=== PATIENT | female | born 1985 | race Caucasian/White ===

== ENCOUNTER 2021-06-21 03:45 | Inpatient (IN) | payer OTHER ==
[2021-06-21] MEDS: ELECTROLYTE-148 SOLN 1,000 ML IV SCH ×2 (05:15→09:50)
[2021-06-21] MEDS ORDERED: PENICILLIN G POTASSIUM 5,000,000 UNIT in DEXTROSE 5%-WATER - 250 ML IVPB ONE (06:00)
[2021-06-21] MEDS ORDERED: PROMETHAZINE HCL 25 MG/1 ML VIAL IVPUSH ONE (06:06)
[2021-06-21] MEDS ORDERED: BUTORPHANOL TARTRATE 1 MG/ML VIAL IVPB ONE (06:06)
[2021-06-21 06:15] VITALS: BMI 34.5
[2021-06-21 06:33] LABS: BASO % 0.3 % (0-2.0); EOS % 0.4 % (0-4.5); HEMATOCRIT 35.3 % (32.4-45.2); HEMOGLOBIN 11.8 GM/dL (10.7-15.3); LYMPH % 14.4 % (8-40); MCH 31.1 pg (25.7-33.7); MCHC 33.5 g/dl (32.0-36.0); MEAN CELL VOLUME 92.9 fl (80-96); MEAN PLT VOLUME 9.5 fl (7.5-11.1); MONO % 5.3 % (3.8-10.2); NEUT % 79.6 % (42.8-82.8); PLATELET COUNT 205 10^3/uL (134-434); RDW 14.1 % (11.6-15.6)
[2021-06-21 06:54] LABS: BLOOD UREA NITROGEN 10.2 mg/dL (7-18); CALCIUM 8.6 mg/dL (8.5-10.1)
[2021-06-21 06:58] LABS: CREATININE 0.5 mg/dL (0.55-1.3)
[2021-06-21 07:04] LABS: INR 0.97 (0.83-1.09); PROTHROMBIN TIME (PATIENT) 11.2 SEC (9.7-13.0)
[2021-06-21 07:07] LABS: ACTIVATED PTT 27.9 SECONDS (25.2-36.5)
[2021-06-21] MEDS ORDERED: OXYTOCIN 30 UNITS in 0.9% NS 30 UNIT/500 ML INFUS.BAG IVPB SCH (07:45)
[2021-06-21] MEDS ORDERED: OXYTOCIN 30 UNITS in 0.9% NS 30 UNIT/500 ML INFUS.BAG IVPB ONE (07:47)
[2021-06-21 07:51] LABS: HIV INTERPRETATION NEGATIVE (NEGATIVE)
[2021-06-21] MEDS ORDERED: FENTANYL/BUPIVACAINE/NS/PF - PCEA - 50 ML DISP.SYRIN EP ONE ×3 (08:05→17:39)
[2021-06-21] MEDS ORDERED: NALOXONE HCL 0.4 MG/ML VIAL IVPUSH PRN (08:09)
[2021-06-21] MEDS ORDERED: BUPIVACAINE HCL/PF 0.25% (2.5MG/ML) 10 ML VIAL ONE (08:11)
[2021-06-21] MEDS: FENTANYL/BUPIVACAINE/NS/PF - PCEA - 50 ML DISP.SYRIN EP SCH ×3 (08:20→17:43)
[2021-06-21] MEDS: PENICILLIN G POTASSIUM 2,500,000 UNIT in DEXTROSE 5%-WATER - 100 ML IVPB SCH ×4 (10:00→23:13)
[2021-06-21] MEDS ORDERED: ACETAMINOPHEN 325 MG TABLET (FP) PO PRN ×2 (20:41→20:55)
[2021-06-21] MEDS ORDERED: oxyCODONE HCL 5 MG TABLET PO PRN (20:41)
[2021-06-21] MEDS ORDERED: IBUPROFEN 800 MG/8 ML IJ IVPB PRN (20:41)
[2021-06-21] MEDS ORDERED: ACETAMINOPHEN 1000 MG/100 ML BAG IVPB PRN (20:41)
[2021-06-21] MEDS ORDERED: SENNOSIDES/DOCUSATE COMBO (SENNA PLUS) TABLET (UD) PO PRN (20:41)
[2021-06-21] MEDS ORDERED: ONDANSETRON 4 MG/2 ML VIAL IVPB PRN (20:41)
[2021-06-21] MEDS ORDERED: ONDANSETRON 4 MG/2 ML VIAL IVPUSH PRN (20:55)
[2021-06-21] MEDS ORDERED: IBUPROFEN 600 MG TABLET (FP) PO PRN (20:55)
[2021-06-21] MEDS ORDERED: morphine SULFATE/PF 1 MG/2 ML (2cc Syringe - QUVA) EP ONE (20:55)
[2021-06-21] MEDS ORDERED: OXYTOCIN 20 UNITS in 0.9% NS 20 UNIT/1,000 ML INFUS.BAG IV ONE (21:52)
[2021-06-21] MEDS: OXYTOCIN 20 UNITS in 0.9% NS 20 UNIT/1,000 ML INFUS.BAG IV SCH (22:20)
[2021-06-22] MEDS: CEFAZOLIN 2 GM in DEXTROSE 5%-WATER - 100 ML IVPB SCH ×2 (02:24→11:37)
[2021-06-22] MEDS: OXYTOCIN 20 UNITS in 0.9% NS 20 UNIT/1,000 ML INFUS.BAG IV SCH (06:01)
[2021-06-22 09:15] LABS: BASO % 0.1 % (0-2.0); HEMATOCRIT 27.3 % (32.4-45.2); LYMPH % 13.4 % (8-40); MCH 31.2 pg (25.7-33.7); MCHC 33.1 g/dl (32.0-36.0); MEAN CELL VOLUME 94.2 fl (80-96); MEAN PLT VOLUME 9.3 fl (7.5-11.1); MONO % 5.5 % (3.8-10.2); PLATELET COUNT 190 10^3/uL (134-434); RDW 13.9 % (11.6-15.6)
[2021-06-22] MEDS: IBUPROFEN 600 MG TABLET (FP) PO PRN ×2 (13:04→19:57)
[2021-06-22] MEDS: SIMETHICONE 80 MG TAB.CHEW (FP) PO PRN ×2 (13:06→19:58)
[2021-06-22] MEDS ORDERED: BISACODYL 10 MG SUPP.RECT RC PRN (20:41)
[2021-06-22 21:48] VITALS: TEMP 97.9
[2021-06-23] MEDS: IBUPROFEN 600 MG TABLET (FP) PO PRN (08:04)
[2021-06-23] MEDS: SIMETHICONE 80 MG TAB.CHEW (FP) PO PRN (08:04)
[2021-06-23 08:40] VITALS: BP 101/68; PULSE 80
== END 2021-06-23 12:35 | disposition home or self-care (01) | DRG 540 ==
LOC: JLDR 03:45 → J3W 22:34
PROVIDERS: ADMIT Specialist; ATTEND Specialist
PROC: 10D00Z1 Extraction of Products of Conception, Low, Open Approach (ICD-10-PCS; principal; 2021-06-21)
PROC: 3E033VJ Introduction of Other Hormone into Peripheral Vein, Percutaneous Approach (ICD-10-PCS; 2021-06-21)
DX: O76 Abnormality in fetal heart rate and rhythm complicating labor and delivery (principal); O42.02 Full-term premature rupture of membranes, onset of labor within 24 hours of rupture; O32.4XX0 Maternal care for high head at term, not applicable or unspecified; O34.13 Maternal care for benign tumor of corpus uteri, third trimester; D25.9 Leiomyoma of uterus, unspecified; Z3A.39 39 weeks gestation of pregnancy; Z37.0 Single live birth
CPT/HCPCS: 36415; 80048; 85025; 85610; 85730; 86780; 86850; 86900; 86901; 87389; 88307-TC; C9803-CS; U0003; U0005

== ENCOUNTER 2023-02-14 11:32 | Inpatient (IN) | payer OTHER ==
[2023-02-14 12:52] LABS: BASO % 0.4 % (0-2.0); EOS % 0.5 % (0-4.5); HEMATOCRIT 33.8 % (32.4-45.2); HEMOGLOBIN 11.3 GM/dL (10.7-15.3); LYMPH % 16.5 % (8-40); MCH 31.6 pg (25.7-33.7); MCHC 33.6 g/dl (32.0-36.0); MEAN PLT VOLUME 8.4 fl (7.5-11.1); MONO % 5.1 % (3.8-10.2); NEUT % 77.5 % (42.8-82.8); PLATELET COUNT 211 10^3/uL (134-434); RBC 3.59 M/mm3 (3.60-5.2); RDW 14.1 % (11.6-15.6); WHITE BLOOD COUNT 9.4 K/mm3 (4.0-10.0)
[2023-02-14 14:24] VITALS: BMI 33.8
[2023-02-14] MEDS ORDERED: ONDANSETRON 4 MG/2 ML VIAL ONE (16:21)
[2023-02-14] MEDS ORDERED: PHENYLEPHRINE HCL 10 MG/1 ML SINGLE DOSE VIAL ONE (16:21)
[2023-02-14] MEDS ORDERED: OXYTOCIN 10 UNITS/ML VIAL ONE (16:21)
[2023-02-14] MEDS ORDERED: KETOROLAC TROMETHAMINE 30 MG/1 ML VIAL ONE ×2 (16:21→18:17)
[2023-02-14] MEDS ORDERED: METOCLOPRAMIDE HCL INJECTION 10 MG/2 ML VIAL ONE (16:21)
[2023-02-14] MEDS ORDERED: ceFAZolin SODIUM 1 GM VIAL ONE (16:21)
[2023-02-14] MEDS ORDERED: morphine SULFATE/PF 1 MG/2 ML (2cc Syringe - QUVA) ONE (16:27)
[2023-02-14] MEDS ORDERED: SODIUM CHLORIDE 0.9% P/F 10 ML VIAL IJ ONE (16:28)
[2023-02-14] MEDS ORDERED: FENTANYL CITRATE/PF 50 MCG/ML VIAL ONE (16:28)
[2023-02-14] MEDS ORDERED: ePHEDrine SULFATE 50 MG/1 ML AMPULE ONE (16:28)
[2023-02-14] MEDS ORDERED: CITRIC ACID/SODIUM CITRATE 30 ML UNIT-DOSE CUP PO ONE (17:11)
[2023-02-14] MEDS ORDERED: TRIAMCINOLONE ACETONIDE 40 MG/ML 10 ML VIAL SQ ONE (17:13)
[2023-02-14] MEDS ORDERED: ELECTROLYTE-148 SOLN 1,000 ML IV SCH (17:15)
[2023-02-14 18:20] LABS: CORD BASE EXCESS -1.5 mmol/L (0-2); CORD HCO3 23.6 mmHg (20-29); CORD PCO2 41.1 mmHg (30-78); CORD pH 7.377 (7.14-7.44)
[2023-02-14] MEDS ORDERED: METHYLERGONOVINE MALEATE 0.2 MG/1 ML AMP IM PRN (19:01)
[2023-02-14] MEDS ORDERED: ACETAMINOPHEN 325 MG TABLET (FP) PO PRN (19:01)
[2023-02-14] MEDS ORDERED: OXYTOCIN 20 UNITS in 0.9% NS 20 UNIT/1,000 ML INFUS.BAG IV ONE (20:27)
[2023-02-14] MEDS: OXYTOCIN 20 UNITS in 0.9% NS 20 UNIT/1,000 ML INFUS.BAG IV SCH ×2 (20:30→23:57)
[2023-02-14] MEDS: FERROUS SO4 325 MG TABLET (FP) PO SCH (22:28)
[2023-02-14] MEDS: IBUPROFEN 800 MG/8 ML IJ IVPB PRN (22:44)
[2023-02-15] MEDS ORDERED: oxyCODONE HCL 5 MG TABLET PO PRN (07:02)
[2023-02-15] MEDS: IBUPROFEN 800 MG/8 ML IJ IVPB PRN (08:26)
[2023-02-15] MEDS: FERROUS SO4 325 MG TABLET (FP) PO SCH ×2 (09:21→21:14)
[2023-02-15] MEDS: PRENATAL VITAMINS W/ FOLIC ACID TABLET (FP) PO SCH (09:21)
[2023-02-15] MEDS: ENOXAPARIN NA (PORCINE) 40 MG/0.4 ML DISP.SYRIN SQ SCH (09:22)
[2023-02-15 10:59] LABS: HEMATOCRIT 36.7 % (32.4-45.2); HEMOGLOBIN 12.2 GM/dL (10.7-15.3); MCH 31.5 pg (25.7-33.7); MCHC 33.3 g/dl (32.0-36.0); MEAN CELL VOLUME 94.8 fl (80-96); MEAN PLT VOLUME 8.7 fl (7.5-11.1); PLATELET COUNT 212 10^3/uL (134-434); RBC 3.87 M/mm3 (3.60-5.2); RDW 14.3 % (11.6-15.6); WHITE BLOOD COUNT 12.8 K/mm3 (4.0-10.0)
[2023-02-15] MEDS: IBUPROFEN 600 MG TABLET (FP) PO PRN ×2 (15:09→17:51)
[2023-02-15] MEDS: oxyCODONE HCL 5 MG TABLET PO PRN ×2 (16:32→21:19)
[2023-02-15] MEDS: SIMETHICONE 80 MG TAB.CHEW (FP) PO PRN ×2 (16:33→21:14)
[2023-02-15] MEDS ORDERED: BISACODYL 10 MG SUPP.RECT RC PRN (19:02)
[2023-02-16] MEDS: IBUPROFEN 600 MG TABLET (FP) PO PRN ×3 (07:29→17:52)
[2023-02-16] MEDS: SIMETHICONE 80 MG TAB.CHEW (FP) PO PRN (07:29)
[2023-02-16] MEDS: PRENATAL VITAMINS W/ FOLIC ACID TABLET (FP) PO SCH (09:05)
[2023-02-16] MEDS: FERROUS SO4 325 MG TABLET (FP) PO SCH ×2 (09:05→21:53)
[2023-02-16] MEDS: ENOXAPARIN NA (PORCINE) 40 MG/0.4 ML DISP.SYRIN SQ SCH (09:06)
[2023-02-16] MEDS: oxyCODONE HCL 5 MG TABLET PO PRN (22:14)
[2023-02-17] MEDS: IBUPROFEN 600 MG TABLET (FP) PO PRN (06:15)
[2023-02-17 09:17] LABS: BASO % 0.3 % (0-2.0); EOS % 0.5 % (0-4.5); HEMATOCRIT 32.8 % (32.4-45.2); LYMPH % 21.4 % (8-40); MCH 31.2 pg (25.7-33.7); MCHC 33.5 g/dl (32.0-36.0); MEAN CELL VOLUME 93.2 fl (80-96); MEAN PLT VOLUME 8.9 fl (7.5-11.1); MONO % 6.2 % (3.8-10.2); NEUT % 71.6 % (42.8-82.8); PLATELET COUNT 187 10^3/uL (134-434); RBC 3.52 M/mm3 (3.60-5.2); RDW 14.4 % (11.6-15.6); WHITE BLOOD COUNT 8.5 K/mm3 (4.0-10.0)
[2023-02-17] MEDS: FERROUS SO4 325 MG TABLET (FP) PO SCH (09:43)
[2023-02-17] MEDS: ENOXAPARIN NA (PORCINE) 40 MG/0.4 ML DISP.SYRIN SQ SCH (09:43)
[2023-02-17] MEDS: PRENATAL VITAMINS W/ FOLIC ACID TABLET (FP) PO SCH (09:43)
[2023-02-17 12:16] VITALS: BP 115/77; PULSE 80; RESP 16; TEMP 98.1
== END 2023-02-17 12:25 | disposition home or self-care (01) | DRG 540 ==
LOC: JLDR 11:32 → J3W 22:01
PROVIDERS: ADMIT Obstetrics & Gynecology; ATTEND Obstetrics & Gynecology
PROC: 10D00Z1 Extraction of Products of Conception, Low, Open Approach (ICD-10-PCS; principal; 2023-02-14)
DX: O34.211 Maternal care for low transverse scar from previous cesarean delivery (principal); O69.81X0 Labor and delivery complicated by cord around neck, without compression, not applicable or unspecified; Z3A.40 40 weeks gestation of pregnancy; Z37.0 Single live birth
CPT/HCPCS: 36415; 36600; 80053; 82803; 85025; 85027; 85610; 85730; 86780; 86850; 86900; 86901; 88307-TC; 94010

== ENCOUNTER 2023-11-02 11:56 | Emergency (ER) | payer OTHER ==
[2023-11-02 12:04] VITALS: BP 120/81; PULSE 97; RESP 18; TEMP 98.9; BMI 27.1
[2023-11-02 13:43] LABS: BASO % 0.5 % (0-2.0); EOS % 0.9 % (0-4.5); HEMATOCRIT 41.3 % (32.4-45.2); LYMPH % 27.5 % (8-40); MCH 31.6 pg (25.7-33.7); MCHC 33.8 g/dl (32.0-36.0); MEAN CELL VOLUME 93.3 fl (80-96); MEAN PLT VOLUME 9.3 fl (7.5-11.1); MONO % 4.6 % (3.8-10.2); NEUT % 66.5 % (42.8-82.8); PLATELET COUNT 259 10^3/uL (134-434); RBC 4.42 M/mm3 (3.60-5.2); RDW 13.3 % (11.6-15.6); WHITE BLOOD COUNT 6.8 K/mm3 (4.0-10.0)
[2023-11-02] MEDS: SODIUM CHLORIDE 0.9% 500 ML INFUS.BAG IV ONE (14:01)
[2023-11-02 14:14] LABS: POTASSIUM 4.2 mmol/L (3.5-5.1)
[2023-11-02 14:16] LABS: BLOOD UREA NITROGEN 13.2 mg/dL (7-18); CALCIUM 9.2 mg/dL (8.5-10.1)
[2023-11-02 14:20] LABS: CREATININE 0.8 mg/dL (0.55-1.3)
[2023-11-02 14:21] LABS: BILIRUBIN,TOTAL 0.5 mg/dL (0.2-1); TOT PROT 7.4 g/dl (6.4-8.2)
== END 2023-11-02 16:59 | disposition home or self-care (01) ==
LOC: JER 11:56
DX: R42 Dizziness and giddiness (principal); R00.2 Palpitations; R06.02 Shortness of breath; Z20.822 Contact with and (suspected) exposure to COVID-19
CPT/HCPCS: 0241U-QW; 36415; 71046-TC-FY; 80053; 84443; 84484; 84703; 85025; 93005; 93010; 99285-25